=== PATIENT | male | born 1955 | race Caucasian/White ===

== ENCOUNTER 2017-12-19 05:13 | Day surgery (SDC) | payer MEDICARE ==
--- NOTE | 2017-11-18 06:35 | Anethesia Preoperative Eval ---
Anesthesia Pre-op PMH/ROS General Date of Evaluation: Nov 18, 2017 Time of Evaluation: 06:31 Anesthesiologist: roopa ASA Score: ASA 3 Mallampati Score Class I : Soft palate, uvula, fauces, pillars visible Class II: Soft palate, uvula, fauces visible Class III: Soft palate, base of uvula visible Class IV: Only hard plate visible Mallampati Classification: Class II Surgeon: arnie Diagnosis: rectal bleeding Surgical Procedure: colonoscopy Anesthesia History: none Social History: smoking - nonsmoker Family History: no anesthesia problems Allergies: Coded Allergies: No Known Allergies (Unverified , 08/16/12) Medications: see eMAR Past Medical History Cardiovascular: Reports: HTN, other - chf, hypercholesterolemia Neurologic/Psychiatric: Reports: depression/anxiety Endocrine: Reports: DM Hematology/Immune: Reports: other - hiv, cancer Anesthesia Pre-op Phys. Exam Physician Exam Constitutional: NAD Neurologic: CN 2-12 intact Cardiovascular: RRR Respiratory: CTA Gastrointestinal: S/NT/ND Airway Exam Mallampati Score: Class II MO: full Neck: supple TMD: 2fb Anesthesia Pre-op A/P Risk Assessment & Plan Assessment: asa3 Plan: mac Status Change Before Surgery: No Pre-Antibiotics Drug: BIJAN Milan Nov 18, 2017 06:35
[2017-12-19] VITALS (9 sets, daily range): BP systolic 112–123; BP diastolic 74–79
[~2017-12-19] VITALS: Ht 185.4 cm; Wt 90.7 kg
[~2017-12-19 05:13] MED LIST: ACTOS45 MG PO; Atropine Inj 1mg/10ml Syr IV PRN; DiphenhydrAMINE 50mg/ml Inj IVP PRN; FAMCICLOVIR500 MG PO; LIPITOR80 MG PO; LORAZEPAM1 MG PO; LR 1000ml 1,000 ML IVLG SCH; Midazolam 2mg/2ml Inj IVP PRN; NORVIR100 MG PO; PREZISTA400 MG PO; PRILOSEC20 MG PO; TRUVADA1 TAB PO; ZESTRIL20 MG PO; fentaNYL 100 mcg/2 mL IV PRN
[2017-12-19] MEDS ORDERED: ISENTRESS400 MG ORAL (06:06)
[2017-12-19] MEDS ORDERED: MULTI-VITAMIN1 EACH PO (06:06)
[2017-12-19] MEDS ORDERED: CALCIUM500 M2 PO (06:06)
[2017-12-19] MEDS ORDERED: PREZCOBIX 8001 EACH PO (06:06)
[2017-12-19] MEDS ORDERED: ASPIR 8181 MG ORAL (06:06)
[2017-12-19] MEDS ORDERED: FISH OIL 1,0001 EAC4 ORAL (06:06)
[2017-12-19] MEDS ORDERED: CHROMIUM PICO200 MC2 PO (06:06)
[2017-12-19] MEDS ORDERED: METFORMIN HCL500 M1 ORAL (06:06)
[2017-12-19] MEDS ORDERED: IRON325 M1 PO (06:06)
[2017-12-19] MEDS ORDERED: VITAMIN D400 INTLU ORAL (06:06)
[2017-12-19] MEDS ORDERED: FOLIC ACID1 MG ORAL (06:06)
[2017-12-19] MEDS ORDERED: LR 1000ml 1,000 ML IVLG SCH ×2 (06:58→07:00)
[2017-12-19] MEDS ORDERED: Midazolam 2mg/2ml Inj IVP PRN (07:00)
[2017-12-19] MEDS ORDERED: DiphenhydrAMINE 50mg/ml Inj IVP PRN (07:00)
[2017-12-19] MEDS ORDERED: LORazepam Inj 2mg/ml 1ml IV PRN (07:00)
[2017-12-19] MEDS ORDERED: Ketorolac 30mg Inj IV PRN ×2 (07:00)
[2017-12-19] MEDS ORDERED: Lidocaine 1% MPF 10mg/ml 5ml ONE (07:00)
[2017-12-19] MEDS ORDERED: Labetalol 5mg/ml 20ml vial IV PRN (07:00)
[2017-12-19] MEDS ORDERED: LR 1000ml ONE (07:00)
[2017-12-19] MEDS ORDERED: fentaNYL 100 mcg/2 mL IV PRN (07:00)
[2017-12-19] MEDS ORDERED: Hydromorphone 0.5mg/0.5ml inj IVP PRN (07:00)
[2017-12-19] MEDS ORDERED: Propofol 200mg/20ml IV ONE (07:00)
[2017-12-19] MEDS ORDERED: HYDROcodone/Acetamin 7.5/325 tab ORAL PRN (07:00)
[2017-12-19] MEDS ORDERED: Norco 5mg/325mg tab ORAL PRN (07:00)
[2017-12-19] MEDS ORDERED: Atropine Inj 1mg/10ml Syr IV PRN (07:00)
[2017-12-19] MEDS ORDERED: oxyCODONE HCL/Acetaminophen 5/325mg ORAL PRN (07:00)
[2017-12-19] MEDS ORDERED: Midazolam 2mg/2ml Inj ONE (07:00)
--- NOTE | 2017-12-19 07:03 | Pre-Procedure Note/Attestation ---
Pre-Procedure Note/Attestation Complete Prior to Procedure Planned Procedure: not applicable Procedure Narrative: Colonoscopy, possible biopsy, polypectomy, hemostasis, submucosal injection Indications for Procedure Pre-Operative Diagnosis: screening Attestation I attest that I discussed the nature of the procedure; its benefits; risks and complications; and alternatives (and the risks and benefits of such alternatives ), prior to the procedure, with the patient (or the patient's legal patient account representative). I attest that, if there was a reasonable possibility of needing a blood transfusion, the patient (or the patient's legal patient account representative) was given the [facility] standardized written summary, pursuant to the Phillip Jono Blood Safety Act ([place] Health and Safety Code # 1645, as amended). I attest that I re-evaluated the patient just prior to the surgery and that there has been no change in the patient's H&P, except as documented below: MELANY BEARDEN Dec 19, 2017 07:03
--- NOTE | 2017-12-19 07:20 | Anethesia Preoperative Eval ---
Anesthesia Pre-op PMH/ROS General Date of Evaluation: Dec 19, 2017 Time of Evaluation: 06:51 Anesthesiologist: Anamaria ASA Score: ASA 3 Mallampati Score Class I : Soft palate, uvula, fauces, pillars visible Class II: Soft palate, uvula, fauces visible Class III: Soft palate, base of uvula visible Class IV: Only hard plate visible Mallampati Classification: Class II Surgeon: Stephanie Diagnosis: Rectal CA Surgical Procedure: Colonoscopy Anesthesia History: none Family History: no anesthesia problems Allergies: Coded Allergies: PROCHLORPERAZINE (Verified Allergy, Severe, 12/19/17) "LOSE MY MIND" Medications: see eMAR Past Medical History Cardiovascular: Reports: HTN, other - CHF Gastrointestinal/Genitourinary: Reports: GERD Endocrine: Reports: DM Hematology/Immune: Reports: other - Cancer-Rectal PSxH Narrative: Multiple Rectal SXs Anesthesia Pre-op Phys. Exam Physician Exam Last Vital Signs Date Time Temp Pulse Resp B/P (MAP) Pulse Ox O2 Delivery O2 Flow Rate FiO2 12/19/17 06:14 97.7 76 20 117/76 97 Room Air 97.7 Constitutional: NAD Neurologic: CN 2-12 intact Cardiovascular: RRR Respiratory: CTA Gastrointestinal: S/NT/ND Airway Exam Mallampati Classification ASA 3 Mallampati Score: Class II MO: full ROM: limited Teeth: intact Anesthesia Pre-op A/P Risk Assessment & Plan Assessment: ASA 3 Plan: GA Status Change Before Surgery: No Damian Conrad MD Dec 19, 2017 07:20
--- NOTE | 2017-12-19 07:22 | Immediate Post-Op Evaluation ---
Immediate Post-Op Evalulation Immediate Post-Op Evalulation Procedure: Colonoscopy Date of Evaluation: Dec 19, 2017 Time of Evaluation: 08:04 IV Fluids: 300 LR Blood Products: 0 Estimated Blood Loss: 2 Urinary Output: 0 Blood Pressure Systolic: 116 Blood Pressure Diastolic: 75 Pulse Rate: 61 Respiratory Rate: 16 O2 Sat by Pulse Oximetry: 99 Temperature (Fahrenheit): 98.4 Pain Score (1-10): 2 Nausea: No Vomiting: No Complications 0 Patient Status: awake, reacts, patent, none Hydration Status: adequate Damian Conrad MD Dec 19, 2017 07:22
--- NOTE | 2017-12-19 07:24 | 48 Hour Post Anesthesia Eval ---
Post Anesthesia Evaluation Procedure: Colonoscopy Date of Evaluation: Dec 19, 2017 Time of Evaluation: 10:11 Blood Pressure Systolic: 121 0: 72 Pulse Rate: 64 Respiratory Rate: 18 Temperature (Fahrenheit): 98.2 O2 Sat by Pulse Oximetry: 98 Airway: patent Nausea: No Vomiting: No Hydration Status: adequate Cardiopulmonary Status: Stable Mental Status/LOC: patient returned to baseline Follow-up Care/Observations: 0 Post-Anesthesia Complications: 0 Follow-up care needed: ready to discharge Damian Conrad MD Dec 19, 2017 07:24
--- NOTE | 2017-12-19 07:41 | Endoscopy Procedure Note ---
Endoscopy Procedure Note General Procedures Performed: colonoscopy Operative Findings/Diagnosis: polyps x 4, old anal scar Specimen: yes Pt Tolerated Procedure Well: Yes Estimated Blood Loss: minimal Anesthesia Anesthesiologist: Damian Conrad MD Anesthesia: moderate sedation Medications Medication Given: see anesthesia record Inserted Devices Implant(s) used?: No Quality Quality of Bowel Preparation: Good Did scope reach the cecum?: Yes Was there any complications?: No GI Core Measures 50 yrs or older w/o bx or poly: No 10yrs. F/U not recommended: No If not recommended, why?: Above average risk MELANY BEARDEN Dec 19, 2017 07:41
--- NOTE | 2017-12-19 16:15 | Operative Note - Dictated ---
DATE OF OPERATION: 12/19/2017 PREPROCEDURE DIAGNOSIS: Cancer screening. POSTPROCEDURE DIAGNOSES: Polyps x4 (ascending colon x3, transverse colon), mild internal hemorrhoids, anal scar from previous surgery. SURGEON: Erica Brown M.D. ANESTHESIOLOGIST: Damian Conrad M.D. ANESTHESIA: Propofol sedation. INDICATION FOR PROCEDURE: The patient is a 62-year-old male, whose last colonoscopy was done by [facility] in 2011, which was negative. The patient has a history of HIV and has had previous anal surgery in the past with anal cancer in 1983. The patient has a history of previous anal scarring from previous surgery. He complains of occasional leakage of stool and mucus. In light of the patient's symptoms and history, it was determined at this time to proceed with a followup colonoscopy. DESCRIPTION OF PROCEDURE: Upon consent of the patient, the patient was brought to the procedure room and placed in a left lateral decubitus position. Once adequate sedation was established with propofol drip, digital rectal exam was performed, which showed a well-healed medial scar. An Olympus colonoscope was advanced through the anus into the rectum. The descending colon, splenic flexure, traverse colon, hepatic flexure, ascending colon visualized. Cecum was easily visualized. The valve and appendiceal orifice were identified. The patient's prep was not good. The terminal ileum was intubated and was noted to be normal. The colonoscope was slowly withdrawn. There was noted to be 4 benign. Polyps in the ascending colon X3 and also in the transverse colon. These were removed with cold forceps and sent as separate specimens. Post polypectomy, sites were noted to have no active bleeding. Upon reaching the rectum, the colonoscope was retroflexed and there was noted to be moderate internal hemorrhoids with a well-healed anal scar. The scope was straightened, air was evacuated from the rectum, and the colonoscope was removed. The patient was awakened from anesthesia, brought to postanesthesia recovery in stable condition. There were no complications. IMPRESSION: Polyps x4, moderate internal hemorrhoids, anal scar. PLAN: Repeat colonoscopy in 3 years, continue high-fiber diet, yearly followup. Erica Brown M.D. DR: CHRISTINA JOB#: [id number] CC: Minor Hoyos MD
== END 2017-12-19 09:00 | disposition home or self-care (01) ==
LOC: GAS 05:13
DX: Z12.11 Encounter for screening for malignant neoplasm of colon (principal); D12.2 Benign neoplasm of ascending colon; D12.3 Benign neoplasm of transverse colon; K63.5 Polyp of colon; K64.8 Other hemorrhoids; K21.9 Gastro-esophageal reflux disease without esophagitis; E11.9 Type 2 diabetes mellitus without complications; Z85.048 Personal history of other malignant neoplasm of rectum, rectosigmoid junction, and anus; I11.0 Hypertensive heart disease with heart failure; I50.9 Heart failure, unspecified; Z79.84 Long term (current) use of oral hypoglycemic drugs
CPT/HCPCS: 45380; 82962; J2250; J2704; J7120; 94003; 94150